=== PATIENT | male | born 1960 | race Caucasian/White ===

== ENCOUNTER 2017-03-29 13:01 | Emergency (ER) | payer OTHER ==
[~2017-03-29] VITALS: Ht 162.6 cm; Wt 108.0 kg
[2017-03-29] MEDS ORDERED: GLIPIZIDE XL5 MG PO (13:38)
[2017-03-29] MEDS ORDERED: METFORMIN HCL500 MG PO (13:38)
[2017-03-29] MEDS ORDERED: SIMVASTATIN80 MG PO (13:39)
[2017-03-29] MEDS ORDERED: BISOPROLOL-HCT1 EAC1 PO (13:39)
[2017-03-29] MEDS ORDERED: NAPROSYN500 MG PO (14:16)
[2017-03-29 14:35] VITALS: BP 136/81
== END 2017-03-29 14:36 | disposition home or self-care (01) ==
LOC: EME 13:01
DX: M79.604 Pain in right leg (principal); I83.93 Asymptomatic varicose veins of bilateral lower extremities; E11.9 Type 2 diabetes mellitus without complications; F17.200 Nicotine dependence, unspecified, uncomplicated; Z71.6 Tobacco abuse counseling; E78.5 Hyperlipidemia, unspecified; I10 Essential (primary) hypertension; Z88.1 Allergy status to other antibiotic agents
CPT/HCPCS: 99281; 99284